=== PATIENT | female | born 1990 | race Two or more races ===

== ENCOUNTER 2018-01-07 05:59 | Inpatient (IN) ==
[2018-01-07] MEDS ORDERED: D5 1/2 NS 1000 ML 1,000 ML IV ONE (06:11)
[2018-01-07] MEDS ORDERED: D5 1/2 NS 1000 ML 1,000 ML IV SCH ×3 (06:15→07:00)
[2018-01-07] MEDS ORDERED: D5 1/2 NS 1L W PITOCIN 20 UNITS/L 20 UNITS/1,000 ML BAG IV ONE (06:38)
[2018-01-07] MEDS ORDERED: PITOCIN ONE (06:38)
[2018-01-07] MEDS ORDERED: MOTRIN TAB 800 MG PO PRN (07:22)
[2018-01-07] MEDS ORDERED: PHENERGAN INJ 25 MG IV PRN (07:22)
[2018-01-07 07:54] LABS: BASOPHILS % (AUTO) 0.3 % (0.2-1.0); EOSINOPHILS # (AUTO) 0.1 x10^3/uL (0.0-0.2); EOSINOPHILS % (AUTO) 0.8 % (0.9-2.9); HEMOGLOBIN 9.1 g/dL (12.0-16.0); LYMPHOCYTES # (AUTO) 0.9 X10^3/uL (1.3-2.9); LYMPHOCYTES % (AUTO) 12.5 % (21.0-51.0); MEAN CORPUSCULAR HEMOGLOBIN 33.1 pg (27.0-34.0); MEAN CORPUSCULAR HGB CONC 36.5 g/dL (33.0-35.0); MEAN CORPUSCULAR VOLUME 90.7 fL (80.0-100.0); MEAN PLATELET VOLUME 9.7 fL (7.4-11.0); MONOCYTES # (AUTO) 0.4 x10^3/uL (0.3-0.8); MONOCYTES % (AUTO) 5.5 % (0.0-13.0); NEUTROPHILS # (AUTO) 5.6 x10^3/uL (2.2-4.8); NEUTROPHILS % (AUTO) 80.9 % (42.0-75.0); PLATELET COUNT 208 X10^3/uL (150.0-450.0); RED BLOOD COUNT 2.75 X10^6/uL (3.5-5.4); RED CELL DISTRIBUTION WIDTH 18.1 % (11.6-16.5); WHITE BLOOD COUNT 6.9 X10^3/uL (3.6-10.0)
[2018-01-07 07:55] LABS: BLOOD UREA NITROGEN 6 mg/dL (7-18); CALCIUM 8.5 mg/dL (8.5-10.1); CARBON DIOXIDE 23.9 mmol/L (21-32); CHLORIDE 103 mmol/L (98-107); COR NA(FOR HYPERGLY) 136 mmol/L (136-145); CREATININE 0.68 mg/dL (0.55-1.02); SODIUM 135 mmol/L (136-145); eGFR NON BLACK RACES > 60 (>60)
[2018-01-07] MEDS ORDERED: D5 1/2 NS 1000 ML 1,000 ML with PITOCIN 20 UNITS IV SCH ×2 (08:00)
[2018-01-07] MEDS ORDERED: AMBIEN PO PRN (08:57)
[2018-01-07] MEDS ORDERED: ADACEL or BOOSTRIX TDaP VACCINE IM ONE (08:57)
[2018-01-07] MEDS ORDERED: MILK OF MAGNESIA PO PRN (08:57)
[2018-01-07] MEDS ORDERED: DERMOPLAST SPRAY TOP PRN (08:57)
[2018-01-07] MEDS: PRENATAL PLUS PO SCH (10:00)
[2018-01-07] MEDS: ZANTAC PO SCH ×2 (10:00→21:02)
[2018-01-08] MEDS ORDERED: ADACEL or BOOSTRIX TDaP VACCINE IM ONE (03:03)
[2018-01-08 05:19] LABS: HEMOGLOBIN 8.1 g/dL (12.0-16.0)
[2018-01-08] MEDS ORDERED: DEPO-PROVERA CONTRACEPTIVE INJ IM ONE (07:20)
[2018-01-08] MEDS: ZANTAC PO SCH (08:58)
[2018-01-08] MEDS: PRENATAL PLUS PO SCH (08:58)
[2018-01-08 11:46] VITALS: BP 111/65
== END 2018-01-08 14:10 | disposition home or self-care (01) | DRG 775 ==
LOC: ER 05:59 → LD 06:39 → MED/SURG 08:35
PROVIDERS: ADMIT Specialist; ATTEND Specialist
DX: O99.013 Anemia complicating pregnancy, third trimester; Z3A.39 39 weeks gestation of pregnancy; Z23 Encounter for immunization; Z37.0 Single live birth
CPT/HCPCS: 36415; 59409; 80048; 85014; 85018; 85025; 86592; 86850; 86860; 86880; 86885; 86900; 86901; 86905; 86906; 86970; 90715; 96365; 99285; A4222; S0197; J1050; J2590; S5010